=== PATIENT | female | born 2005 | race Hispanic/Latino ===

== ENCOUNTER 2025-07-28 05:36 | Emergency (ER) | payer OTHER ==
[~2025-07-28] VITALS: Ht 160 cm; Wt 59.5 kg
[2025-07-28] MEDS ORDERED: ACET32TAB PO (05:46)
[2025-07-28] MEDS: KETOROLAC 30 MG/ML 1 ML VIAL IV ONE (08:28)
[2025-07-28 08:40] LABS: BASO # 0.0 10^3/uL (0.0-0.2); BASO % 0.2 % (0.0-1.0); EOS # 0.1 10^3/uL (0.0-0.5); EOS % 1.0 % (0.0-3.0); LYMPH # 1.7 10^3/uL (1.5-5.0); LYMPH % 20.3 % (24.0-44.0); MONO # 0.7 10^3/uL (0.0-0.8); MONO % 8.8 % (2.0-8.0); NEUTROPHILS # 5.7 10^3/uL (1.5-8.5); NEUTROPHILS % 69.5 % (36.0-66.0); PLATELET COUNT, AUTOMATED 192 10^3/uL (150-450)
[2025-07-28 09:09] LABS: HCG, SERUM QUALITATIVE NEGATIVE (NEGATIVE)
[2025-07-28 09:10] LABS: ALT/SGPT 12 U/L (7.0-40); AST/SGOT 14 U/L (<34); CALCIUM LEVEL 8.5 MG/DL (8.5-10.1); CARBON DIOXIDE LEVEL 24 MMOL/L (20-31); CHLORIDE LEVEL 109 MMOL/L (98-107); CREATININE FOR GFR 0.62 MG/DL (0.55-1.30); GLOMERULAR FILTRATION RATE > 90.0 (>60); POTASSIUM SERUM 3.9 MMOL/L (3.5-5.1); SODIUM LEVEL 144 MMOL/L (136-145)
[2025-07-28] MEDS ORDERED: ISOVUE-370 76% 100 ML VIAL As Ordered ONE (09:22)
[2025-07-28] MEDS: ACETAMINOPHEN *IV* 1,000 MG in IV 1 EA IV ONE (11:10)
[2025-07-28] MEDS: cefTRIAXone SOD 2 GM in DEXTROSE 5% (D5W) ADV/MINI-BAG 50 ML IV ONE (11:33)
[2025-07-28 11:50] LABS: KETONE, URINE AUTO RFX NEGATIVE (NEGATIVE); LEUKOCYTE ESTERASE UR AUTO RFX 2+ (NEGATIVE); MUCUS, URINE RFX SMALL (NEGATIVE); NITRITE, URINE AUTO RFX NEGATIVE (NEGATIVE); RBC, URINE AUTO RFX 8 /HPF (0-3); SQUAM EPITHELIAL CELL UR AURFX 10 /HPF (0-6); WBC, URINE AUTO RFX 74 /HPF (0-3); YEAST LIKE CELL URINE AUTO RFX SMALL
[2025-07-28] MEDS ORDERED: AMOX875T2 PO (12:17)
[2025-07-28 12:33] VITALS: BP 118/69; TEMP 97.4; O2SAT 100
== END 2025-07-28 12:39 | disposition home or self-care (01) ==
LOC: M ED 05:36
DX: K80.00 Calculus of gallbladder with acute cholecystitis without obstruction (principal); F10.10 Alcohol abuse, uncomplicated; Z79.1 Long term (current) use of non-steroidal anti-inflammatories (NSAID); Z79.2 Long term (current) use of antibiotics
CPT/HCPCS: 74177; 76705; 80053; 81001; 83605; 83690; 84703; 85025; 87086; 96365; 96375; 99284; J0134; J0696; J1885; Q9967